=== PATIENT | female | born 1990 | race Caucasian/White ===

== ENCOUNTER 2021-08-27 10:09 | Outpatient (CLI) | payer OTHER, SELFPAY ==
--- NOTE | ~2021-08-27 | US_ITS ---
EXAMINATION: US abdomen limited DATE: 08/27/2021 17:29 INDICATION: Abnormal liver function tests. TECHNIQUE: Multiple grayscale and Doppler ultrasound images of the abdomen were obtained. COMPARISON: None FINDINGS: The visualized portions of the head, body, and tail of the pancreas are normal. There is di ffuse hepatic steatosis. There is normal flow in main portal vein. The gallbladder is normal in size. No gallstones or gallbladder wall thickening. There was no sonographic Robles sign. The common duct is normal and measures 4 mm. IMPRESSION: 1. Diffuse hepatic steatosis. Reviewed, dictated and finalized at location A.
== END 2021-08-27 10:10 | disposition home or self-care (01) ==
PROVIDERS: PCP Family Medicine; Visit Provider Family Medicine
DX: R74.01 Elevation of levels of liver transaminase levels (principal); K76.0 Fatty (change of) liver, not elsewhere classified
CPT/HCPCS: 76705

== ENCOUNTER 2024-10-10 17:30 | Outpatient (CLI) | payer OTHER, SELFPAY ==
[2024-10-10 18:15] LABS: Alanine Aminotransferase 49 U/L (6-35); Albumin Level 4.5 g/dL (3.5-5.1); Alkaline Phosphatase 48 U/L (38-126); Aspartate Amino Transferase 37 U/L (14-36); Bilirubin,Total 0.5 mg/dL (0.2-1.3)
[2024-10-15 15:03] LABS: ANA Pattern Nuclear, Speckled; ANA Titer 1:40 titer; Anti Nuclear Antibody Pattern Mitotic, Centrosome; Anti Nuclear Antibody Titer 1:40 titer
[2024-10-19 14:37] LABS: ALT 33 U/L (6-29); Alpha-2-Macroglobulin 126 mg/dL (106-279); Apolipoprotein A1 131 mg/dL (101-198); Fibrosis Score 0.05; Fibrosis Stage F0; GGT 54 U/L (3-50); Haptoglobin 191 mg/dL (43-212); Necroinflammat Act Grade A0; Total Bilirubin 0.4 mg/dL (0.2-1.2)
== END 2024-10-10 17:31 | disposition home or self-care (01) ==
LOC: ANHLAB 17:33
PROVIDERS: PCP Family Medicine; Visit Provider Nurse Practitioner
DX: K76.0 Fatty (change of) liver, not elsewhere classified (principal)
CPT/HCPCS: 36415; 80076; 81596; 82104; 86038; 86039